=== PATIENT | male | born 1990 | race Caucasian/White ===

== ENCOUNTER 2022-01-29 06:47 | Emergency (ER) | payer OTHER ==
[~2022-01-29] VITALS: Ht 185.4 cm; Wt 102.5 kg
[2022-01-29] MEDS ORDERED: ACETAMINOPHEN 325 MG TAB PO ONE (08:35)
[2022-01-29 10:12] VITALS: BP 138/84
== END 2022-01-29 10:26 | disposition home or self-care (01) ==
LOC: M ED 06:47
DX: S39.013A Strain of muscle, fascia and tendon of pelvis, initial encounter (principal); W18.40XA Slipping, tripping and stumbling without falling, unspecified, initial encounter; Y92.9 Unspecified place or not applicable; Y93.9 Activity, unspecified; Y99.1 Military activity

== ENCOUNTER → 2022-08-23 | Outpatient (CLI) | payer OTHER | LOC: M PLARAD 08:35 | PROVIDERS: ATTEND Physician Assistant | DX: M25.512 Pain in left shoulder (principal) ==

== ENCOUNTER 2024-08-19 05:33 | Emergency (ER) | payer OTHER ==
[~2024-08-19] VITALS: Ht 185.4 cm; Wt 104.6 kg
[2024-08-19 08:23] VITALS: BP 122/69; TEMP 97.6; O2SAT 98
== END 2024-08-19 08:26 | disposition home or self-care (01) ==
LOC: M ED 05:33
DX: S76.311A Strain of muscle, fascia and tendon of the posterior muscle group at thigh level, right thigh, initial encounter (principal); X50.0XXA Overexertion from strenuous movement or load, initial encounter; Y92.89 Other specified places as the place of occurrence of the external cause; Y93.75 Activity, martial arts; Y99.9 Unspecified external cause status